=== PATIENT | male | born 1960 | race Caucasian/White ===

== ENCOUNTER 2024-10-30 22:12 | Day surgery (SDC) | payer BC, SELFPAY ==
[2024-10-30 12:15] VITALS: BP 145/84
[2024-10-30 12:46] LABS: % Basophils 0.9 % (0-2); % Immature Granulocytes 0.2 % (0-0.5); % Lymphocytes 18.4 % (20.5-51.1); % Monocytes 11.5 % (1.7-9.3); Absolute Basophils 0.1 10^3/uL (0-0.2); Absolute Eosinophils 0.2 10^3/uL (0-0.7); Absolute Lymphocytes 1.5 10^3/uL (1.2-3.4); Absolute Monocytes 0.9 10^3/uL (0.1-0.6); Absolute Neutrophils 5.4 10^3/uL (1.4-6.5); Hematocrit 40.2 % (39.0-52.0); Hemoglobin 13.5 g/dL (13.0-18.0); Mean Corp Hgb Conc. 33.6 g/dL (33.0-37.0); Mean Corpuscular Hgb 28.8 pg (27.0-31.0); Mean Corpuscular Volume 85.7 fL (80.0-94.0); Mean Platelet Volume 10.7 fL (7.4-10.4); Nucleated Red Blood Cells % 0 % (-); Platelet Count 202 10^3/uL (130-400); Red Blood Cell Count 4.69 10^6/uL (4.70-6.10); Red Cell Dist. Width 14.3 % (11.5-14.5)
[2024-10-30 13:07] LABS: ALT (SGPT) 20 U/L (0-50); AST (SGOT) 19 U/L (17-59); Albumin 4.3 g/dl (3.5-5.0); Alkaline Phosphatase 93 U/L (38-126); Blood Urea Nitrogen 15 mg/dl (9-20); Calcium 9.4 mg/dl (8.4-10.2); Carbon Dioxide 27 mmol/L (22-30); Chloride 98 mmol/L (98-107); Glucose 116 mg/dl (70-99); Potassium 4.1 mmol/L (3.5-5.1); Sodium 136 mmol/L (135-145); Total Bilirubin 1.4 mg/dl (0.2-1.3); Total Protein 7.3 g/dl (6.3-8.2); eGFR > 60.00
[2024-10-30 13:23] LABS: Lipase 59 U/L (23-300)
[2024-10-30 14:37] VITALS: BP 129/76
--- NOTE | 2024-10-30 14:53 | ED.GENMED ---
History of Present Illness
General
Chief Complaint: Abdominal Pain
Source: patient
Exam Limitations: none
Time Seen by Provider: 10/30/24 14:46
Nursing documentation reviewed up to this point in time: agreed with
History of Present Illness
History of Present Illness:
Patient presents to ED secondary to persistent abdominal pain over the past 4 days. Patient was evaluated by his primary care physician who referred patient to ED for an evaluation, with concern for potential gallbladder disease. Since onset of
symptoms, however, patient does state that his pain has steadily improved, but never went away. Abdominal pain described as sharp, nonradiating, without any alleviating or exacerbating factors. Denies trauma. Denies back pain. Denies difficulty
with urination. Denies recent change in diet or medications. Denies recent illness. Denies trauma. Denies previous history of similar symptoms. Denies change in bowel habits.
Past History
Past History
ED Past Medical History: HTN and Hypercholesterolemia
ED Past Surgical History: Orthopedic
Social History
Tobacco: Non-smoker
Alcohol: Occasional
Personal:
Living: with family
Review of Systems
Review of Systems
Allergies reviewed?: Yes
All Other Systems: ROS reviewed and negative except as documented in HPI and ROS
Constitutional: Reports no symptoms; Denies fever
EENT: Reports no symptoms
Respiratory: Reports no symptoms
Cardiac: Reports no symptoms
ABD/GI: Reports abdominal pain; Denies vomiting or diarrhea
Musculoskeletal: Reports no symptoms
Skin: Reports no symptoms
Neurological: Reports no symptoms
Phy Exam
Physical Exam
Physical Exam:
Physical Exam
General: no apparent distress, not acutely ill. afebrile
Head: nc/at. eomi
Neck: supple. normal range of motion.
Heart: s1/s2 regular rate and rhythm, no murmur.
Lungs: no acute respiratory distress. clear bilaterally
Abdomen: normal bowel sounds. not tender.
Neuro: alert and oriented x 3. no focal neurological deficits
Skin: no rash
Psychiatric: well kept. interactive and cooperative
Extremities: no edema. no calf tenderness.
Course
Orders/Labs/Results
Orders:
Orders
10/30/24 12:19
EKG [Electrocardiogram (*1)] Urgent
Reason for Study: Abdominal Pain
EKG- Treatment ONCE
10/30/24 12:20
Complete Blood Count/With Diff Urgent
Comprehensive Metabolic Panel Urgent
Lipase Urgent
10/30/24 14:53
US Abdomen Complete/Upper Urgent
Comment:
Reason For Exam: RUQ pain
10/30/24 17:42
Piperacillin/Tazo 3.375 Gram [Zosyn] 3.375 gram in 50 ml IV NOW
Abnormal Lab Results
10/30/24
12:20
RBC 4.69 L 10^6/uL
(4.70-6.10)
MPV 10.7 H fL
(7.4-10.4)
Absolute Monos (auto) 0.9 H 10^3/uL
(0.1-0.6)
Lymphocytes % 18.4 L %
(20.5-51.1)
Monocytes % 11.5 H %
(1.7-9.3)
Glucose 116 H mg/dl
(70-99)
Total Bilirubin 1.4 H mg/dl
(0.2-1.3)
10/30/24 12:20
10/30/24 12:20
Vital Signs
Initial and Last Documented VS:
Initial Vital Signs
Temp Pulse Resp BP Pulse Ox
98.1 F 112 16 145/84 98
10/30/24 12:15 10/30/24 12:15 10/30/24 12:15 10/30/24 12:15 10/30/24 12:15
Last Documented Vital Signs
Temp Pulse Resp BP Pulse Ox
98.1 F 93 20 113/77 95
10/30/24 12:15 10/30/24 15:15 10/30/24 15:15 10/30/24 15:00 10/30/24 14:45
MDM/Problems Addressed
MDM/Problems Addressed:
History, exam, and ultrasound consistent with likely biliary colic. However, patient with persistent pain along with mildly elevated bilirubin level.
Discussed with on-call surgery, Dr. Rivera, who recommends patient to be admitted for likely cholecystectomy. Requests Zosyn to be started
*EKG
Interpreted by ED Provider?: Yes
EKG Intrepretation Date: 10/30/24
Heart Rate: 97
Rate: normal
Rhythm: sinus
[place]: normal axis
Interval: normal interval
*Critical Care Note
Total Time (30-74mins, 75-104mins- exclusive of procedures): Not Applicable
ED Attending Note
-
Portions of this chart may have been created with voice recognition software.� Occasional wrong word or��sound alike� substitutions may have occurred due to the inherent limitations of voice recognition software.
Discharge Plan
Departure
Patient Disposition: Admit
Date of Disposition: 10/30/24
Time of Disposition: 17:43
Admit to: Med/Surg
Presentation/result/management discussed w/ accepting /DO:
Discharge Problem:
Biliary colic
Prescriptions:
No Action
atorvastatin 80 mg Tablet
40 mg PO HS
irbesartan-hydrochlorothiazide 300-12.5 mg Tablet
1 tab PO DAILY
aspirin [Adult Aspirin Regimen] 81 MG tablet,delayed release (/EC)
81 mg PO DAILY
Referrals:
David Lundberg MD [Family Provider] -
Interventions
Interventions:
*Risk Screen - Suicide Last Done: 10/30/24 12:15
*General Assessment Last Done: 10/30/24 15:02
*Neglect/Abuse Screening Last Done: 10/30/24 12:15
*ED- Fall Risk Assessment Last Done: 10/30/24 15:02
*ED COVID-19 Vaccine History Last Done: 10/30/24 15:02
IV-Pluxpt-Bsqvzusenr Assessment Last Done: 10/30/24 15:02
Discharge Date and Time
Print Language: KOREAN
[2024-10-30 15:00] VITALS: BP 113/77
[2024-10-30] MEDS: ZOSYN 50 IV ×2 (17:50→23:00)
[2024-10-30 20:47] VITALS: BP 158/99
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
[2024-10-30 22:23] VITALS: BP 150/85; BMI 43.9
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
[2024-10-30] MEDS: LR 1000 IV (23:00)
[2024-10-30 23:41] VITALS: BP 135/78
[2024-10-31] VITALS (9 sets, daily range): BP systolic 105–135; BP diastolic 51–81
[2024-10-31] MEDS: ZOSYN 50 IV ×3 (05:45→23:24)
[2024-10-31 07:47] LABS: Hematocrit 37.4 % (39.0-52.0); Hemoglobin 12.7 g/dL (13.0-18.0); Mean Corpuscular Hgb 28.7 pg (27.0-31.0); Mean Corpuscular Volume 84.6 fL (80.0-94.0); Mean Platelet Volume 10.6 fL (7.4-10.4); Platelet Count 195 10^3/uL (130-400); Red Blood Cell Count 4.42 10^6/uL (4.70-6.10); Red Cell Dist. Width 14.1 % (11.5-14.5); White Blood Cell Count 6.5 10^3/uL (4.8-10.8)
[2024-10-31 08:07] LABS: PT 13.7 Sec (11.4-14.6)
[2024-10-31 08:48] LABS: Blood Urea Nitrogen 14 mg/dl (9-20); Calcium 8.8 mg/dl (8.4-10.2); Carbon Dioxide 24 mmol/L (22-30); Chloride 100 mmol/L (98-107); Estimated Creatinine Clearance 113 ml/min; Glucose 103 mg/dl (70-99); Sodium 137 mmol/L (135-145); eGFR > 60.00
--- NOTE | 2024-10-31 09:40 | W.SUR.PREOP ---
Pre-Operative Surgical Note
-
I have examined this patient prior to the performance of the scheduled procedure.
The patient's condition is unchanged from the time of the current History and
Physical and the patient is able to undergo the scheduled procedure.
[2024-10-31] MEDS: LR 1000 IV (10:13)
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
--- NOTE | 2024-10-31 15:35 | W.IMMPOSTOP ---
Surgical Immed Post Op Note
-
Primary Surgeon: Escobar Barker MD
Assisting Surgeon: None
Pre-op Diagnosis: Acute cholecystitis
Post-op Diagnosis: Acute cholecystitis, choledocholithiasis
Procedure Performed:
1. Laparoscopic cholecystectomy with cholangiogram
2. Laparoscopic Peng cystic common bile duct exploration
Anesthesia Type: General
Specimen / Cultures: Gallbladder and contents
Estimated Blood Loss: 13 cc
Complications: None
Operative Findings: Veress entry, port sites accommodated to avoid umbilical mesh. Inflamed, thickened and edematous intrahepatic gallbladder. Exposure difficult due to patient's large liver. Cystic artery ligated early. Large tortuous cystic
duct left controlled with a 0 silk tie and opened very close to the gallbladder. Multiple small black pigment and stones expressed from the ductotomy and removed. A cholangiogram was performed which demonstrated and no filling of the duodenum,
this persisted after 1 mg of glucagon so the cholangiocatheter was advanced pushing the distal obstruction into the duodenum. Completion cholangiogram demonstrated no residual filling defects and normal biliary anatomy. The duct was ligated with a
0 PDS Endoloop.
POST OP PLAN:
Imaging: None
Labs: Routine AM
Diet: Clears
Analgesia: Tylenol 650mg q6 Jewels, Dilaudid 0.5mg q2h PRN
Neuro/vascular checks: q4h
AC/AP: Hold Therapeutic AC, Ok for DVT PPx
Activity: Ad Jessie
Wound/Incisions/Drains: Routine
Abx: Will continue antibiotics while admitted
Dispo: RNF, anticipate discharge home tomorrow
[2024-10-31] MEDS: DILAUDID 0.25 MG IV ×2 (16:11→16:21)
[2024-10-31] MEDS: ZOSYN IV (16:53)
--- NOTE | 2024-10-31 17:00 | PTCARENOTE ---
Pt received from the PACU via bed. Transport was w/o incident. Pt denies nausea or pain at this time. Pt abd with 5 lap sites, well approximated with derma weaver, no drainage noted. VSS, Pt is afebrile. Pt instructed on plan of care. Pt verbalized
understanding of instructions. Call angulo is within reach.
[2024-10-31] MEDS: LOVENOX 40 MG SC (18:18)
--- NOTE | 2024-10-31 18:40 | OR.RPT ---
Operative Report
Operative Report
Patient Name: Adolfo Arango
: 1960
Date of Operation: 10/31/2024
Preoperative Diagnosis: Acute cholecystitis
Postoperative Diagnosis: Acute cholecystitis, choledocholithiasis
Procedure(s):
Laparoscopic Cholecystectomy with Cholangiogram
Laparoscopic Transcystic common bile duct exploration
Surgeon(s):
Dr. Barker
User Experience Manager(s):
None
Anesthesia: General
Estimated Blood Loss: 13 cc
Urine Output: None
Drains/Lines/Implants: None
Specimens:
1. Gallbladder and contents
HPI/Surgical Indications:
This is a 64-year-old male who presents with a 3-day history of postprandial right upper quadrant abdominal pain. Exam, labs and imaging are consistent with acute cholecystitis. Risks/Benefits/Alternatives were discussed at length, and the patient
agreed to proceed with surgery.
Operative Findings: Veress entry, port sites accommodated to avoid umbilical mesh. Inflamed, thickened and edematous intrahepatic gallbladder. Exposure difficult due to patient's large liver. Cystic artery ligated early. Large tortuous cystic
duct left controlled with a 0 silk tie and opened very close to the gallbladder. Multiple small black pigment and stones expressed from the ductotomy and removed. A cholangiogram was performed which demonstrated no filling of the duodenum, this
persisted after 1 mg of glucagon so the cholangiocatheter was advanced pushing the distal obstruction into the duodenum. Completion cholangiogram demonstrated no residual filling defects and normal biliary anatomy. The duct was ligated with a 0
PDS Endoloop.
Procedure Description:
The patient was brought to the Operating Room and placed in the supine position with one arm tucked. Following uneventful induction of general endotracheal anesthesia, an orogastric tube was placed. The abdomen was prepped and draped in the usual
sterile fashion. A timeout was performed confirming the procedure, consent, and that IV antibiotics were infused and sequential compression devices were confirmed to be on. The abdomen was entered using a left subcostal Veress technique which
required a single pass followed by a 5 mm right upper quadrant Optiview trocar. Pneumoperitoneum to 15 mmHg pressure was obtained without difficulty and we confirmed that no injury had occurred during our entry. The patient was positioned in
reverse Trendelenberg and rotated with the right side up slightly. Two 5 mm trocars were then placed along the right subcostal margin, followed by a 12 mm port in the epigastrium. The gallbladder was notably distended and intrahepatic. The
gallbladder was emptied using a decompressing needle through the fundus of the gallbladder with evacuation of hydrops before A locking grasping forceps was placed on the fundus of the gallbladder where it was then retracted cephalad and to the
right. Using appropriate grasping instruments, the peritoneum overlying the triangle of Calot was incised and extended superiorly on both the anterior and posterior gallbladder corcoran. The infundibulum was dissected off the cystic plate. The cystic
triangle was dissected until a critical view of safety was achieved. The cystic artery was medialized, dissected and controlled with 2 proximal clips and 1 distal. The cystic duct/gallbladder junction in turn was identified, dissected
circumferentially. It was noted to be quite dilated and tortuous. An 0 silk tie was used to ligate the duct near the infundibular junction. A ductotomy was made and multiple black pigmented stones were milked out of the duct and passed off the
field. Once cleared, a cholangiocatheter on an Lawrence clamp was inserted into the cystic duct. A C-arm was draped and brought into the field. An intra-operative cholangiogram was performed and was noted to have:
A distal filling defect in the biliary tree with minimal passage of contrast.
No significant biliary dilation
Normal biliary anatomy
We then administered 1 mg of glucagon and allowed 2 minutes for this to take effect and repeat cholangiogram once again showed minimal to no contrast into the duodenum. The cholangiocatheter was then advanced under fluoroscopic. There was some
resistance at the ampulla which we pushed through, pushing what was likely a small stone into the duodenum. The catheter was then pulled back into the CBD and our completion cholangiogram was performed which demonstrated brisk filling of the
duodenum. The catheter was then removed and the cystic duct was controlled with a clip followed by 0 PDS Endoloop. After ensuring both the artery and duct were divided, the gallbladder was freed from the liver using electrocautery. There was no
spillage of bile or stones. The gallbladder bed was inspected and excellent hemostasis was obtained. The gallbladder was extracted through the 12 mm trocar site using an endocatch bag. The abdomen was again irrigated and excellent hemostasis was
assured. All remaining trocars were then removed and the pneumoperitoneum was evacuated. The 12 mm trocar site was closed using 0 PDS suture. All trocar sites were closed at the skin level using 4-0 Monocryl followed by Dermabond. Overall, the
patient tolerated the procedure well and was taken to the Recovery Room postoperatively in stable condition.
I was the attending physician and performed the procedure with no assistance. I was present for all portions of the case
Escobar Barker MD
[2024-11-01] MEDS: MORPHINE SULFATE 2 MG IV (03:07)
[2024-11-01] MEDS: LR 1000 IV (03:08)
[2024-11-01 03:11] VITALS: BP 123/74
[2024-11-01] MEDS: ZOSYN 50 IV (05:12)
[2024-11-01] MEDS: LR IV (06:24)
[2024-11-01 06:36] LABS: % Basophils 0.1 % (0-2); % Immature Granulocytes 0.5 % (0-0.5); % Lymphocytes 7.6 % (20.5-51.1); % Neutrophils 85.8 % (42.2-75.2); Absolute Immature Granulocytes 0.1 10^3/uL (0-0.05); Absolute Lymphocytes 0.8 10^3/uL (1.2-3.4); Absolute Monocytes 0.6 10^3/uL (0.1-0.6); Absolute Neutrophils 8.9 10^3/uL (1.4-6.5); Mean Corp Hgb Conc. 33.3 g/dL (33.0-37.0); Mean Corpuscular Hgb 28.4 pg (27.0-31.0); Mean Corpuscular Volume 85.3 fL (80.0-94.0); Mean Platelet Volume 10.7 fL (7.4-10.4); Nucleated Red Blood Cells % 0 % (-); Platelet Count 226 10^3/uL (130-400); Red Blood Cell Count 4.22 10^6/uL (4.70-6.10); Red Cell Dist. Width 13.7 % (11.5-14.5); White Blood Cell Count 10.4 10^3/uL (4.8-10.8)
--- NOTE | 2024-11-01 07:15 | W.PN.GS2 ---
Today's Communication / Plan
-
Dispo plan
Assessment / Plan
-
This is a 64-year-old male presented with postprandial right upper quadrant pain, imaging somewhat equivocal for cholecystitis versus biliary colic. Now postoperative day 1 from a laparoscopic cholecystectomy with cholangiogram and Peng cystic
common bile duct exploration for choledocholithiasis and acute cholecystitis. Doing well, expected postoperative course.
Will DC home today.
Time Spent
Total Time Spent with Patient (in minutes): 20
Subjective Data
-
Date of Service: November 01, 2024
Interval Events:
No acute events overnight. Slept well. Pain Controlled. Denies Nausea/Vomiting, +bowel function. Tolerating diet.
Objective Data
-
Intake and Output
10/31/24 11/01/24 11/02/24
06:59 06:59 06:59
Intake Total 100 / 100
Output Total 500 / 500 900 / 900
Balance -500 / -500 -800 / -800
Intake:
IV fluids (Total) 100 / 100
Normosol 100 / 100
Output:
Urine, Voided 500 / 500 900 / 900
Vital Signs
Temp Pulse Resp BP Pulse Ox
97.9 F 82 16 123/74 96
11/01/24 03:11 11/01/24 03:11 11/01/24 03:11 11/01/24 03:11 11/01/24 03:11
Lab Results
11/01/24 05:27
Calcium 8.8 mg/dl (8.4-10.2) 10/31/24 06:42
Total Bilirubin 1.4 mg/dl (0.2-1.3) H 10/30/24 12:20
AST 19 U/L (17-59) 10/30/24 12:20
ALT 20 U/L (0-50) 10/30/24 12:20
Alkaline Phosphatase 93 U/L (38-126) 10/30/24 12:20
Total Protein 7.3 g/dl (6.3-8.2) 10/30/24 12:20
Albumin 4.3 g/dl (3.5-5.0) 10/30/24 12:20
Physical Exam
-
GENERAL/NEURO: Awake, Alert, no distress
CHEST: Unlabored breathing on RA
ABDOMEN: Soft, Non-Tender, Non-Distended, incisions clean dry and intact
Patient has a mixon catheter: No
Patient has a central line: No
[2024-11-01 07:20] VITALS: BP 126/77
[2024-11-01 08:16] LABS: ALT (SGPT) 78 U/L (0-50); AST (SGOT) 55 U/L (17-59); Albumin 3.4 g/dl (3.5-5.0); Alkaline Phosphatase 126 U/L (38-126); Blood Urea Nitrogen 9 mg/dl (9-20); Calcium 8.6 mg/dl (8.4-10.2); Carbon Dioxide 27 mmol/L (22-30); Chloride 102 mmol/L (98-107); Estimated Creatinine Clearance > 125 ml/min; Glucose 103 mg/dl (70-99); Potassium 4.6 mmol/L (3.5-5.1); Sodium 136 mmol/L (135-145); Total Bilirubin 0.7 mg/dl (0.2-1.3); Total Protein 6.2 g/dl (6.3-8.2); eGFR > 60.00
--- NOTE | 2024-11-01 10:20 | CM ---
Pt for discharge today
Reports has ride home
Plan - anticipate home no needs
== END 2024-11-01 11:12 | disposition home or self-care (01) ==
LOC: PACU 22:12
PROVIDERS: Emergency Medicine; Nurse Practitioner Family; Surgery; ATTENDING PHYSICIAN Surgery; EMERGENCY PHYSICIAN Emergency Medicine; FAMILY PHYSICIAN Family Medicine
DX: K81.0 Acute cholecystitis (principal)
CPT/HCPCS: 47563; 88304; 74300; 76000; 76700; 80048; 80053; 83690; 85025; 85027; 85610; 93005; 96365; 99285; A4300; J1610